=== PATIENT | female | born 1950 | race Caucasian/White ===

== ENCOUNTER 2017-05-04 22:49 | Emergency (ER) | payer OTHER ==
[~2017-05-04] VITALS: Ht 167.6 cm; Wt 62.6 kg
[2017-05-05] MEDS ORDERED: CIPRO500 MG PO (08:24)
[2017-05-05] MEDS ORDERED: LEVSIN/SL0.125 MG PO (08:24)
[2017-05-05] MEDS ORDERED: PEPCID40 MG PO (08:24)
== END 2017-05-05 08:49 | disposition home or self-care (01) ==
LOC: ER 22:49
DX: K52.89 Other specified noninfective gastroenteritis and colitis (principal)

== ENCOUNTER → 2017-06-13 | Emergency (ER) | payer OTHER ==
[~2017-06-13] VITALS: Ht 167.6 cm; Wt 63.5 kg
[~2017-06-13] MED LIST: CIPRO500 MG PO; LEVSIN/SL0.125 MG PO; OSEL75CA PO; PEPCID40 MG PO; TUSSI PRES-B L120 M1 PO
== END | disposition home or self-care (01) ==
LOC: ER 09:17
DX: B34.9 Viral infection, unspecified (principal)